=== PATIENT | female | born 1950 | race Caucasian/White ===

== ENCOUNTER 2018-02-13 16:10 | Inpatient (IN) | END 2018-02-17 13:30 | disposition home or self-care (01) | DRG 439 ==

== ENCOUNTER 2018-07-07 18:48 | Emergency (ER) | payer OTHER ==
[~2018-07-07] VITALS: Ht 157.5 cm; Wt 54.0 kg
[~2018-07-07 18:48] MED LIST: ALEN70TA5 PO; ATOR40TA68 PO; CALC3.7S4 NASAL; ENOX100D2 SC; GABA-526 PO; LEVO100T8 PO; LIRA0.6P2 SQ; LISI10TA2 PO; MTF1000T PO; NATE120T12 PO; NITR0.4T32 SL; OMEP40CA6 PO; TRAZ-111 PO; WARF5TAB PO
[2018-07-07 18:52] VITALS: Ht 157.5 cm; Wt 54.0 kg
[2018-07-07] MEDS ORDERED: SOD CHLORIDE 0.9% 500 ML IV STA (19:09)
[2018-07-07] MEDS ORDERED: METOCLOPRAMIDE 10 MG INJ IV STA (19:09)
[2018-07-07] MEDS ORDERED: PRED20TA PO (20:36)
[2018-07-07] MEDS ORDERED: VALA10004 PO (20:36)
--- NOTE | 2018-07-07 20:37 | ERD ---
ER Documentation Chief Complaint Chief Complaint left facial nubness/facial droop x 1 hour ago, c/o headache. HPI 68-year-old female with a history of atrial fibrillation and ischemic stroke about 10 years ago on Coumadin presenting with complaints of left facial drooping and tingling that started about 1 hour ago. She states that she has had a left-sided severe headache for the past 6 days. The pain is constant, aching, waxing and waning in intensity. No associated nausea, vomiting, vision disturbance, focal weakness or numbness. Today she started noticing a left facial drooping which brought her into the ER for evaluation. She states that recently she felt like she had a sore on her tongue and admits to a history of herpes. Currently she denies any intraoral sores. 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 Denies any chest pain, neck pain, shortness of breath, fever, chills. ROS All systems reviewed and are negative except as per history of present illness. Medications Home Meds Active Scripts Prednisone* (Prednisone*) 20 Mg Tab, 60 MG PO DAILY for 6 Days, TAB Prov:HECTOR YATES MD 07/07/18 Valacyclovir HCl (Valtrex) 1,000 Mg Tablet, 1000 MG PO TID for 7 Days, TAB Prov:HECTOR YATES MD 07/07/18 Reported Medications Ergocalciferol (Vitamin D2) (VITAMIN D2) 50,000 Unit Capsule, 66169 UNIT PO Q7D, CAP 07/07/18 Atkinson-3 Fatty Acids/Fish Oil (Atkinson 3 1,000 mg Softgel) 1 Each Capsule, 1 EACH PO DAILY, CAP 07/07/18 Ubidecarenone (Coq-10) 100 Mg Capsule, 300 MG PO DAILY, CAP 07/07/18 Omeprazole* (Omeprazole*) 20 Mg Capsule.dr, 40 MG PO BID, #60 CAP 07/07/18 Alendronate Sodium* (Fosamax*) 70 Mg Tablet, 70 MG PO Q7D, #4 TAB 07/07/18 Atorvastatin* (Atorvastatin*) 40 Mg Tablet, 40 MG PO QHS, #30 TAB 07/07/18 Trazodone Hcl* (Trazodone Hcl*) 50 Mg Tablet, 9 TAB PO DAILY, #30 TAB 07/07/18 Gabapentin* (Gabapentin*) 300 Mg Capsule, 600 MG PO DAILY, #180 CAP 07/07/18 Lisinopril* (Lisinopril*) 10 Mg Tablet, 10 MG PO DAILY, #30 TAB 07/07/18 Nitroglycerin* (Nitroglycerin* SL) 0.4 Mg Tab.subl, 0.4 MG SL Q5MIN PRN for CHEST PAIN, BOTTLE 07/07/18 Levothyroxine Sodium* (Levothyroxine Sodium*) 88 Mcg Tablet, 88 MCG PO BEFORE BREAKFAST, #30 TAB 07/07/18 Warfarin Sodium* (Coumadin*) 5 Mg Tablet, 5 MG PO DAILY, TAB 07/07/18 Liraglutide (Victoza 3-Pete) 0.6 Mg/0.1 Ml Pen.injctr, 1.8 MG SQ DAILY, SYR 07/07/18 Nateglinide* (Starlix*) 120 Mg Tablet, 120 MG PO AC MEALS, TAB 07/07/18 Metformin Hcl* (Metformin Hcl*) 1,000 Mg Tablet, 1000 MG PO WITH BREAKFAST DINNE, #60 TAB 07/07/18 Discontinued Reported Medications Omeprazole* (Omeprazole*) 40 Mg Capsule.dr, 40 MG PO DAILY, #30 CAP 02/13/18 Alendronate Sodium* (Fosamax*) 70 Mg Tablet, 70 MG PO Q7D, #4 TAB 02/13/18 Calcitonin-[place], Synthetic* (Calcitonin-[place]*) 3.7 Ml [place].pump, 1 SPRAY NASAL DAILY, SPR ALTERNATING NOSTRIL 02/13/18 Atorvastatin* (Atorvastatin*) 40 Mg Tablet, 40 MG PO QHS, #30 TAB 02/13/18 Trazodone Hcl* (Trazodone Hcl*) 50 Mg Tablet, 50 MG PO QHS, #30 TAB 02/13/18 Gabapentin* (Gabapentin*) 600 Mg Tablet, 600 MG PO DAILY, #60 TAB 02/13/18 Lisinopril* (Lisinopril*) 10 Mg Tablet, 10 MG PO DAILY, #30 TAB 02/13/18 Nitroglycerin* (Nitroglycerin* SL) 0.4 Mg Tab.subl, 0.4 MG SL Q5MIN PRN for CHEST PAIN, BOTTLE 02/13/18 Levothyroxine Sodium* (Levothyroxine Sodium*) 100 Mcg Tablet, 100 MCG PO BEFORE BREAKFAST, #30 TAB 02/13/18 Warfarin Sodium* (Coumadin*) 5 Mg Tablet, 5 MG PO DAILY, TAB 02/13/18 Liraglutide (Victoza 3-Pete) 0.6 Mg/0.1 Ml Pen.injctr, 1.8 MG SQ DAILY, SYR 02/13/18 Nateglinide* (Starlix*) 120 Mg Tablet, 120 MG PO AC MEALS, TAB 02/13/18 Metformin* (Glucophage*) 1,000 Mg Tablet, 1000 MG PO BID, #60 TAB 02/13/18 Discontinued Scripts Enoxaparin Sodium (Enoxaparin Sodium) 100 Mg/1 Ml Syringe, 50 MG SC Q12 for 5 Days, #10 SYR use only till your INR is therapeutic between 2 and 3 Prov:BAOZARI Cee 02/16/18 Allergies Allergies: Coded Allergies: Penicillins (Verified Allergy, Unknown, 07/07/18) codeine (Verified Allergy, Unknown, 07/07/18) PMhx/Soc History of Surgery: No Anesthesia Reaction: No Hx Neurological Disorder: Yes (STROKE IN 2007) Hx Respiratory Disorders: No Hx Cardiac Disorders: Yes (Atrial fibrillation, hypertension) Hx Psychiatric Problems: No Hx Miscellaneous Medical Probl: Yes (Hypothyroid) Hx Alcohol Use: No Hx Substance Use: No Hx Tobacco Use: No Smoking Status: Never smoker FmHx Family History: No diabetes Physical Exam Vitals Vital Signs Date Temp Pulse Resp B/P (MAP) Pulse Ox O2 O2 Flow FiO2 Time Delivery Rate 07/07/18 98.3 66 18 110/74 99 Room Air 20:39 (86) 07/07/18 98.3 65 18 106/82 99 Room Air 19:58 (90) 07/07/18 98.3 65 18 162/63 99 Room Air 19:28 (96) 07/07/18 98.3 85 18 195/79 99 18:52 (117) Physical Exam Const: No acute distress, well-appearing, nontoxic Head: Atraumatic. No rashes seen on the scalp but the scalp is very hypersensitive to light touch. Eyes: Normal Conjunctiva, PERRLA, EOMI, no nystagmus ENT: Normal External Ears, Nose and Mouth. No intraoral lesions. Posterior oropharynx normal Neck: Full range of motion. No meningismus. No cervical lymphadenopathy. No JVD Resp: Clear to auscultation bilaterally Cardio: Regular rate and rhythm, no murmurs. 2+ distal pulses in all 4 extremities Abd: Soft, non tender, non distended. Normal bowel sounds Skin: No petechiae or rashes Back: No midline or flank tenderness Ext: No cyanosis, or edema Neur: Awake and alert, left facial droop with cranial nerve VII palsy (involves forehead), all other cranial nerves appear to be intact. Normal speech. Strength and sensations intact in all 4 extremities. Psych: Normal Mood and Affect Result Diagram: 07/07/18192107/07/181921 Results 24 hrs Laboratory Tests Test 07/07/18 19:22 White Blood Count 6.7 10^3/ul Red Blood Count 4.26 10^6/ul Hemoglobin 10.8 g/dl Hematocrit 34.3 % Mean Corpuscular Volume 80.5 fl Mean Corpuscular Hemoglobin 25.4 pg Mean Corpuscular Hemoglobin Concent 31.5 g/dl Red Cell Distribution Width 15.8 % Platelet Count 303 10^3/UL Mean Platelet Volume 10.4 fl Immature Granulocytes % 0.300 % Neutrophils % 52.6 % Lymphocytes % 38.6 % Monocytes % 7.0 % Eosinophils % 1.2 % Basophils % 0.3 % Nucleated Red Blood Cells % 0.0 /100WBC Immature Granulocytes # 0.020 10^3/ul Neutrophils # 3.5 10^3/ul Lymphocytes # 2.6 10^3/ul Monocytes # 0.5 10^3/ul Eosinophils # 0.1 10^3/ul Basophils # 0.0 10^3/ul Nucleated Red Blood Cells # 0.0 10^3/ul Erythrocyte Sedimentation Rate 8 mm/Hr Prothrombin Time 14.6 Sec Prothrombin Time Ratio 1.1 INR International Normalized Ratio 1.13 Activated Partial Thromboplast Time 24.7 Sec Sodium Level 138 mmol/L Potassium Level 4.1 mmol/L Chloride Level 101 mmol/L Carbon Dioxide Level 26 mmol/L Anion Gap 11 Blood Urea Nitrogen 13 mg/dl Creatinine 0.59 mg/dl Est Glomerular Filtrat Rate mL/min > 60 mL/min Glucose Level 240 mg/dl Calcium Level 9.9 mg/dl Current Medications Medications Dose Sig/Ana M Start Time Status Last (Trade) Ordered Route PRN Stop Time Admin Dose Reason Admin Sodium 500 ml @ Q1H STAT 07/07/18 DC 07/07/18 Chloride 500 mls/hr IV 19: 19:28 07/07/18 20:08 10 mg ONCE STAT 07/07/18 DC 07/07/18 Metoclopramid IV : 19:28 e HCl 07/07/18 19:11 (Reglan) Valacyclovir 1,000 mg ONCE ONCE 07/07/18 DC 07/07/18 HCl PO 21:00 20:55 (Valtrex) 07/07/18 21:00 Prednisone 60 mg ONCE ONCE 07/07/18 DC 07/07/18 (Prednisone) PO 21:00 20:55 07/07/18 21:00 Procedures/MDM EMERGENT LABS AND DIAGNOSTIC STUDIES: Lab Results above were reviewed and interpreted by me. CBC: Mild anemia, no evidence of infection CMP: Hyperglycemic without evidence of acidosis. No evidence of electrolyte abnormality, renal failure, hypoglycemia Coags within normal limits, subtherapeutic INR 12-lead EKG was interpreted by Donaldo Yates MD: Normal Sinus Rhythm with sinus arrhythmia at 65 bpm Normal axis Normal intervals No acute ST or T wave changes suggestive of acute ischemia or STEMI. Radiology Results as interpreted by Radiology below were reviewed by SOtis Yates MD: CT head shows no acute abnormalities. 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 Previous Medical Records requested via the Electronic Health Record. EMERGENCY DEPARTMENT COURSE / MEDICAL DECISION MAKING: Patient is presenting with a left-sided headache and new onset left facial droop. Exam is consistent with a cranial nerve VII palsy. I do not suspect acute stroke, aneurysm, intracranial hemorrhage, or encephalitis. CT head showed no acute abnormalities. She is mentating normally with an otherwise normal neurologic exam. She was treated with Reglan IV for her headache with significant improvement. I gave her a dose of Valtrex and prednisone here and recommended these medications for 1 week for Prasad's palsy. I also informed her that her INR was subtherapeutic and that she needs to discuss this with her primary care doctor. Also given her hyperglycemia despite taking some home diabetes medications, I recommended follow-up for blood sugar check as well. Patient and are happy with the discharge plan. Return precautions were given. Patient's blood pressure was elevated (>120/80) but appears stable without evidence of hypertensive emergency or urgency. The patient was counseled about the risks of hypertension and urged to pursue outpatient monitoring and therapy within a week with their primary care physician. Departure Diagnosis: Primary Impression: Prasad's palsy Additional Impression: Left-sided headache Condition: Stable Patient Instructions: Prasad's Palsy Additional Instructions: You will need to buy artificial tears and place in your left eye every hour to prevent dryness. At night, you need to tape your left eye shut to prevent dryness. Follow-up with your primary care doctor within the next week. If any of your symptoms worsen, return to the ER for reevaluation. HECTOR YATES MD Jul 07, 2018 20:37
[2018-07-07 20:39] VITALS: BP 110/74; PULSE 66; RESP 18
[2018-07-07] MEDS ORDERED: METF100010 PO (20:48)
[2018-07-07] MEDS ORDERED: LIRA0.6P2 SQ (20:49)
[2018-07-07] MEDS ORDERED: WARF5TAB PO (20:49)
[2018-07-07] MEDS ORDERED: NATE120T12 PO (20:49)
[2018-07-07] MEDS ORDERED: LEVO88TA3 PO (20:50)
[2018-07-07] MEDS ORDERED: NITR0.4T32 SL (20:51)
[2018-07-07] MEDS ORDERED: LISI10TA2 PO (20:51)
[2018-07-07] MEDS ORDERED: GABA300C16 PO (20:52)
[2018-07-07] MEDS ORDERED: TRAZ-111 PO (20:54)
[2018-07-07] MEDS ORDERED: ATOR40TA68 PO (20:55)
[2018-07-07] MEDS ORDERED: ALEN70TA5 PO (20:55)
[2018-07-07] MEDS ORDERED: OMEP20CA16 PO (20:56)
[2018-07-07] MEDS ORDERED: UBID100C24 PO (20:57)
[2018-07-07] MEDS ORDERED: OMEG1CAP90 PO (20:57)
[2018-07-07] MEDS ORDERED: ERGO500013 PO (20:58)
[2018-07-07] MEDS ORDERED: VALACYCLOVIR 500 MG TAB PO ONE (21:00)
[2018-07-07] MEDS ORDERED: predniSONE 20 MG TAB PO ONE (21:00)
== END 2018-07-07 20:57 | disposition home or self-care (01) ==
LOC: E/R 18:48
DX: G51.0 Bell's palsy (principal); R20.0 Anesthesia of skin; I10 Essential (primary) hypertension; E03.9 Hypothyroidism, unspecified; E11.9 Type 2 diabetes mellitus without complications; Z79.01 Long term (current) use of anticoagulants; Z79.4 Long term (current) use of insulin
CPT/HCPCS: 36415; 70450; 80048; 85025; 85610; 85651; 85730; 93005; 96374; 99285; J2765; J7040; J7512